=== PATIENT | female | born 1950 | race Caucasian/White ===

== ENCOUNTER 2018-06-10 12:44 | Observation (INO) | payer MEDICARE ==
--- NOTE | 2018-06-10 12:47 | ED ---
Adult Trauma - HPI Summary HPI Summary: 68 y/o female BIBA c/o immediate onset, severe L hip pain s/p fall at home minutes [employer]. Pt slipped on R foot down flight of stairs. Denies LOC. L ankle twisted. Associated sx: L ankle pain and swelling, L cortes pain. Pain worsened with movement and weight bearing. Alleviated at rest. - History of Current Complaint Stated Complaint: FALL Hx Obtained From: Patient Mechanism of Injury: Fall, Twisted Loss of Consciousness: no loss of consciousness Onset of Pain: Immediate Onset Severity: Severe Current Severity: Severe Location: Abdomen/Pelvis - L, Extremities - L cortes and ankle Aggravating Factor(s): Movement, Weight Bearing Alleviating Factor(s): Rest Associated Signs & Symptoms: Positive: Other: - swelling L ankle - Allergy/Home Medications Allergies/Adverse Reactions: Allergies Allergy/AdvReac Type Severity Reaction Status Date / Time Adhesive Tape Allergy BLISTERS Verified 06/10/18 13:12 WHEN LEFT ON TOO LONG cephalexin [From Keflex] Allergy Hives Verified 06/10/18 13:12 duloxetine [From Cymbalta] Allergy Unknown Verified 06/10/18 13:12 Reaction Details metronidazole [From Flagyl] Allergy Hives Verified 06/10/18 13:12 nitrofurantoin Allergy Hives Verified 06/10/18 13:12 [From Macrobid] oral narcotics Allergy See Comment Uncoded 06/10/18 13:12 PMH/Surg Hx/FS Hx/Imm Hx Previously Healthy: No Endocrine/Hematology History: Reports: Hx Thyroid Disease - hypo, s/p thyroidectomy Cardiovascular History: Reports: Hx Angina, Hx Hypertension, Other Cardiovascular Problems/Disorders - Lymphedema of both legs, L>R Denies: Hx Coronary Artery Disease, Hx Hypercholesterolemia, Hx Myocardial Infarction, Hx Valvular Heart Disease Respiratory History: Reports: Hx Pulmonary Embolism - X 1- IN 2008- TREATED FOR AND HAD NO RECURRENCE Denies: Hx Asthma, Hx Chronic Obstructive Pulmonary Disease (COPD) GI History: Reports: Hx Diverticulosis, Hx Gastroesophageal Reflux Disease, Hx Hiatal Hernia - SLIGHT, Hx Irritable Bowel - DIVERTICULOSIS, Other GI Disorders - HEMORRHAGIC HEMORRHOIDS History: Reports: Other Problems/Disorders - recurrent UTIs Musculoskeletal History: Reports: Hx Arthritis - SPINE, Hx Back Problems, Other Musculoskeletal History - spina bifida, 5 surgeries, rods & screws Sensory History: Reports: Hx Contacts or Glasses Denies: Hx Hearing Aid Opthamlomology History: Reports: Hx Contacts or Glasses Neurological History: Reports: Hx Headaches, Hx Migraine, Other Neuro Impairments/Disorders - concussion 2012. PA[facility] PT. Denies: Hx Seizures, Hx Spinal Cord Injury, Hx Transient Ischemic Attacks ( TIA) Psychiatric History: Reports: Hx Anxiety - Cancer History Cancer Type, Location and Year: thyroid. phyllodes tumor (right breast) - Surgical History Surgery Procedure, Year, and Place: THYROID PARTIALLY REMOVED. REMAINDER OF THYROID REMOVED. 5 SPINAL SURGERIES. 1981- HEMORROIDECTOMY. 5 YRS AGO- HEMORROIDECTOMY. COLONOSCOPIES. BILATERAL FALLOPIAN TUBES AND 1 OVARY REMOVED. ENDOMETRIAL ABLATION- . TONSILLECTOMY. LAPAROSCOPY TO LOOK AT SPINE. D&C'S Hx Anesthesia Reactions: Yes - STATES BLOOD PRESSURE DROPS AFTER SURGERY - Family History Known Family History: Positive: Unknown - Social History Alcohol Use: Rare Hx Substance Use: No Substance Use Type: Reports: None Hx Tobacco Use: No Smoking Status (MU): Never Smoked Tobacco Review of Systems Constitutional: Negative Eyes: Negative ENT: Negative Cardiovascular: Negative Respiratory: Negative Gastrointestinal: Negative Genitourinary: Negative Positive: Arthralgia - L hip, cortes and ankle pain, Edema - L ankle Skin: Negative Neurological: Negative Psychological: Normal All Other Systems Reviewed And Are Negative: No Physical Exam - Summary Physical Exam Summary: Appearance: Alert, conversive, nontoxic appearing Skin: Warm, dry, no mottling, no rashes, no contusions HEENT: EOMI, PERRL, moist mucous membranes Neck: No masses on the neck, supple Respiratory: Clear to auscultation, breath sounds present, no rales, no rhonchi , no wheezes Cardiovascular: RRR, pulses are symmetrical in both lower and upper extremities Abdomen: Soft, non-tender Bowel Sounds: Present Musculoskeletal: No CVA tenderness, no obvious deformity, moving all extremities in a grossly normal manner Neurological: A&Ox3, CN II-XII Intact, moving all extremities symmetrically Psychiatric: Normal affect and mood Triage Information Reviewed: Yes Vital Signs Reviewed: Yes Diagnostics - Laboratory Result Diagrams: 06/10/18 14:10 06/10/18 14:10 Lab Statement: Any lab studies that have been ordered have been reviewed, and results considered in the medical decision making process. - Radiology Hip/pelvis XR Xray Interpretation: No Acute Changes - No acute bony findings of left hip Radiology Interpretation Completed By: Radiologist Knee XR Xray Interpretation: No Acute Changes - No acute bony findings Radiology Interpretation Completed By: Radiologist Femur Xr Xray Interpretation: No Acute Changes - No acute bony findings Radiology Interpretation Completed By: Radiologist Femur XR Xray Interpretation: No Acute Changes - No acute bony findings Radiology Interpretation Completed By: Radiologist Ankle XR Xray Interpretation: Positive (See Comments) - Moderate diffuse soft tissue swelling. Radiology Interpretation Completed By: Radiologist Lumbar Spine XR Radiology Interpretation Completed By: Radiologist - DEGENERATIVE DISC DISEASE AND OSTEOARTHRITIS. STATUS POST SPINAL FUSION. Lower Extremity XR Xray Interpretation: No Acute Changes - No acute bony change Radiology Interpretation Completed By: Radiologist Foot XR Radiology Interpretation Completed By: Radiologist - Soft Tissue swelling, no acute bony findings Re-Evaluation - Re-Evaluation 1 Re-Evaluation Time: 17:00 Change: Unchanged Comment: Discussed XR results. Pt still in severe pain. Pt wants to be admitted. Pt c/o TRIVEDI and nausea from narcotics. Adult Trauma Course/Dx - Course Assessment/Plan: L side hip, ankle and cortes pain s/p fall at home. BIBA. No LOC. Given morphine for pain, Zofran in ED course. Ankle XR and Foot XR shows moderate diffuse soft tissue swelling. Lumbar Spine XR shows DEGENERATIVE DISC DISEASE AND OSTEOARTHRITIS. STATUS POST SPINAL FUSION. All XR's negative for acute bony findings. On-reeval pt is still in severe pain. Pt wants to be admitted. Spoke with Dr. Estrada, who accepted the pt for admission. - Diagnoses Provider Diagnoses: Intractable back pain, Intractable pain - Physician Notifications Discussed Care Of Patient With: Emperatriz Estrada Time Discussed With Above Provider: 17:05 Instructed by Provider To: Admit As Inpatient Discharge - Sign-Out/Discharge Documenting (check all that apply): Patient Departure - Discharge Plan Condition: Stable Disposition: ADMITTED TO [facility] - Billing Disposition and Condition Condition: STABLE Disposition: Admitted to [facility] - Attestation Statements Document Initiated by Scribe: Yes Documenting Scribe: Yrn Alvarez Provider For Whom Scribe is Documenting (Include Credential): Rosanne Mansfield MD Scribe Attestation: Yrn Fonseca, scribed for Rosanne Mansfield MD on 06/10/18 at 1813. Scribe Documentation Reviewed: Yes Provider Attestation: The documentation as recorded by the scribe, Yrn Alvarez accurately reflects the service I personally performed and the decisions made by me, Rosanne Mansfield MD
[2018-06-10] MEDS ORDERED: Morphine INJ** 4 MG/ML 1 ML CARPUJECT IV ONE (12:51)
[2018-06-10] MEDS ORDERED: Morphine INJ* 2 MG/ML 1 ML SYRINGE (TWO MG - NEW SYRINGE VERSION) ONE (13:25)
[2018-06-10] MEDS ORDERED: Ondansetron ODT TAB* 4 MG ONE (13:31)
[2018-06-10] MEDS ORDERED: Ondansetron ODT TAB* 4 MG PO ONE (13:33)
[2018-06-10 14:14] LABS: ABS Basophils 0.1 10^3/ul (0-0.2); ABS Eosinophils 0.1 10^3/ul (0-0.6); ABS Lymphocytes 2.3 10^3/ul (1.0-4.8); ABS Monocytes 0.4 10^3/ul (0-0.8); ABS Neutrophils 6.7 10^3/ul (1.5-7.7); ABS Nucleated RBC 0 10^3/ul; Eosinophil % 1.2 % (0-6); Hematocrit 41 % (35-47); Hemoglobin 14.5 g/dl (12.0-16.0); Mean Corpuscular HGB Conc 35 g/dl (31-36); Mean Corpuscular Hemoglobin 32 pg (27-31); Mean Corpuscular Volume 90 fL (80-97); Mean Platelet Volume 8.3 um3 (7.4-10.4); Nucleated Red Blood Cells % 0; Platelet Count 243 10^3/ul (150-450); Red Blood Count 4.58 10^6/ul (4.00-5.40); Red Cell Distribution Width 13 % (10.5-15); White Blood Count 9.6 10^3/ul (3.5-10.8)
[2018-06-10 14:27] LABS: INR 0.85 (0.77-1.02)
[2018-06-10 14:33] LABS: EGFR Non-African American 72.6 (>60)
[2018-06-10] MEDS ORDERED: hydrOXYzine HCL TAB* 25 MG PO ONE (14:40)
[2018-06-10] MEDS ORDERED: fentaNYL* 50 MCG/ML 2 ML VIAL (100 MCG VIAL) IV SLOW PU ONE (14:41)
--- NOTE | 2018-06-10 15:45 | RAD ---
INDICATION: Left hip pain COMPARISON: None TECHNIQUE: An AP view of the pelvis and AP views of the hip in neutral and abducted position were obtained FINDINGS: Bones: There are no acute bony findings. Joint spaces: The hips articulate normally. The joint spaces are preserved. SI joints/symphysis: The SI joints and symphysis are intact. Other: There is prior lumbar decompression and fusion IMPRESSION: NO ACUTE FINDINGS ABOUT THE LEFT HIP
--- NOTE | 2018-06-10 15:47 | RAD ---
INDICATION: Left knee pain COMPARISON: None TECHNIQUE: AP and crosstable lateral views were obtained. FINDINGS: There is no acute bony change. There is moderate patellofemoral osteoarthritis. There may be a tiny suprapatellar effusion. IMPRESSION: NO ACUTE BONY FINDINGS.
--- NOTE | 2018-06-10 15:48 | RAD ---
INDICATION: Left leg pain COMPARISON: None TECHNIQUE: AP and lateral views were obtained. FINDINGS: There is no acute fracture. There is minor osteoarthritis about the knee. There are scattered soft tissue calcifications. IMPRESSION: NO ACUTE BONY FINDINGS.
--- NOTE | 2018-06-10 15:54 | RAD ---
HISTORY: pain COMPARISONS: January 28, 2013 VIEWS: 3 , Frontal, lateral, and coned-down lateral sacral views of the lumbar spine FINDINGS: ALIGNMENT: There is grade 1 anterolisthesis of L5 on S1, stable. VERTEBRAL BODIES: The patient is status post laminectomy and spinal fusion with pedicle screws at L3 and S1 with stabilizing rods. JOINTS: There is fusion of the facet joints from L3 through S1 INTERVERTEBRAL DISCS: There is diffuse loss of intervertebral disc height. SOFT TISSUE: Unremarkable. OTHER: The pelvis is unremarkable. The lung bases are clear. IMPRESSION: DEGENERATIVE DISC DISEASE AND OSTEOARTHRITIS. STATUS POST SPINAL FUSION.
--- NOTE | 2018-06-10 15:55 | RAD ---
INDICATION: Left ankle pain COMPARISON: None TECHNIQUE: AP, lateral, and oblique views were obtained. FINDINGS: There is no acute fracture. The ankle mortise is intact. There is moderate diffuse soft tissue swelling. IMPRESSION: MODERATE DIFFUSE SOFT TISSUE SWELLING
--- NOTE | 2018-06-10 15:57 | RAD ---
INDICATION: Left foot pain COMPARISON: None TECHNIQUE: AP, crosstable lateral, and oblique views were obtained. FINDINGS: There is no acute bony change. There is first MTP joint osteoarthritis. There is mild diffuse soft tissue swelling. IMPRESSION: SOFT TISSUE SWELLING. NO ACUTE FRACTURE.
--- NOTE | 2018-06-10 15:59 | RAD ---
INDICATION: Left lower leg pain COMPARISON: None TECHNIQUE: AP and lateral views were obtained. FINDINGS: There is no acute bony change. There is a loss in the fat muscle interface consistent with mild dependent edema. IMPRESSION: NO ACUTE BONY CHANGE.
[2018-06-10] MEDS ORDERED: Ondansetron INJ* 2 MG/ML VIAL IV PRN (18:01)
[2018-06-10] MEDS: fentaNYL* 50 MCG/ML 2 ML VIAL (100 MCG VIAL) IV SLOW PU PRN ×2 (18:53→23:36)
[2018-06-10] MEDS: hydrOXYzine HCL TAB* 25 MG PO PRN ×2 (18:54→23:36)
--- NOTE | 2018-06-10 20:38 | HP ---
CC: Dr. Forrester * [facility] MEDICINE HISTORY AND PHYSICAL: DATE OF ADMISSION: 06/10/18 PRIMARY CARE PHYSICIAN: Dr. Forrester ATTENDING PHYSICIAN: Devika Hall MD * (dictation provided by Betty Benavides NP ). CHIEF COMPLAINT: Back and leg pain. HISTORY OF PRESENT ILLNESS: Ms. Moses is a 68-year-old female with a past medical history of spina bifida with multiple back surgeries, diabetes, and hypothyroidism, who presents to the hospital today with concern for a fall at home. Ms. Moses states she was in her normal state of health when she was coming down the stairs and slipped with her right leg landing on her left side and sliding down the stairs. She had immediate pain throughout her left side, though most pronouncedly in her leg, ankle, foot, hip, and back. The patient was transported to the emergency room here for evaluation. She states that prior to this fall, she was feeling her normal state of health and that this was a purely mechanical fall and she did not lose consciousness. In the emergency room, Ms. Moses had multiple imaging studies including x-rays of the hip, pelvis, ankle, knee, femur, foot, and lumbar spine showing no evidence of a fracture. The patient had pain medication in the ED, but despite this had continued uncontrolled pain and inability to ambulate, and therefore, plans are for observation in the hospital. PAST MEDICAL HISTORY: 1. Spina bifida with back surgeries x5. 2. Hypothyroidism secondary to thyroid cancer with thyroidectomy. 3. Hypertension. 4. Type 2 diabetes, the patient reports prediabetes. 5. 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 MEDICATIONS: Outpatient are: 1. Metformin 500 mg p.o. daily. 2. Triamterene/hydrochlorothiazide 37.5/25 mg 1 cap p.o. b.i.d. 3. Levothyroxine 150 mcg p.o. daily. ALLERGIES: To ADHESIVE TAPE, CEPHALEXIN, DULOXETINE, METRONIDAZOLE, NITROFURANTOIN, and ORAL NARCOTICS. FAMILY HISTORY: The patient's dad in his 80s related to coronary artery disease. Mother related to supranuclear palsy in her 90s. She had a sister who had Parkinson's, another sister had colon cancer. SOCIAL HISTORY: The patient denies alcohol, tobacco, or drug use. She lives with her , Pascual, who is her healthcare proxy. REVIEW OF SYSTEMS: A 14-point review of systems was completed with Ms. Moses and all those not mentioned above were negative. PHYSICAL EXAMINATION GENERAL: Ms. Moses is lying in the bed. She appears uncomfortable, but in no acute distress. VITAL SIGNS: Temperature 98, pulse rate 58, respiratory rate 20, O2 saturation 99% on room air, and blood pressure 158/84. LUNGS: Clear to auscultation bilaterally with no accessory muscle use and good aeration. HEART: S1, S2. No murmur, rub, or gallop and regular. ABDOMEN: Soft and nontender with bowel sounds positive x4. EXTREMITIES: No cyanosis. There is edema to the left ankle and foot and a slight abrasion to the left cortes with very minimal erythema. NEUROLOGIC: She is alert. She is oriented x3. She moves all extremities equally, though the movement of the left lower extremity is limited due to pain. There is no facial asymmetry or focal weakness. Extraocular movements are intact. SKIN: Intact. DIAGNOSTIC STUDIES/LAB DATA: Sodium 139, potassium 3.7, chloride 105, serum bicarbonate 25, BUN 18, creatinine 0.79, glucose 130. WBC 9.6, hemoglobin 14.5 , hematocrit 41, and platelet count 243,000. INR is 0.85. The patient had a hip and pelvis x-ray that showed the following: "No acute findings about the left hip." Ankle x-ray shows "moderate diffuse soft tissue swelling." Knee x-ray: No acute bony findings. Femur x-ray: No acute bony findings. Foot x-ray: Soft tissue swelling. No acute fracture. Lower extremity x-ray: No acute bony change. Lumbar spine x-ray: Degenerative disk disease and osteoarthritis, status post spinal fusion. ASSESSMENT AND PLAN: Ms. Moses is a 68-year-old female with past medical history of thyroid cancer, status post thyroidectomy, diabetes, and 5 back surgeries secondary to spina bifida who presents to the hospital today with concern for a fall with uncontrolled pain and inability to ambulate. Our plans are for observation in the hospital for the followin. Uncontrolled pain with inability to ambulate: The patient has a history of multiple back surgeries and what she reports as an inability to tolerate oral narcotics secondary to issue with digestive enzymes that cause rapid metabolism of these medications leading to respiratory distress and therefore, requires observation in the hospital for pain control. She tolerates fentanyl well. We will have fentanyl available with hydroxyzine p.r.n. I have ordered PT to begin working with her tomorrow. 2. Hypothyroidism: Continue levothyroxine. 3. Hypertension: Continue triamterene/hydrochlorothiazide. 4. Type 2 diabetes. The patient states she is "prediabetic." Plan to hold metformin, but do not plan to check blood glucoses while inpatient. 5. Code status: Full code. 6. Disposition: To medical floor. TIME SPENT: Approximately 60 minutes were spent on the admission of this patient, more than half the time with the patient at the bedside reviewing the events leading up to this hospitalization, performing physical examination, reviewing my plan of care. BETTY BENAVIDES NP [id number]/CPS #: [id number] SHANNAN
[2018-06-10] MEDS: Triamterene/HCTZ 37.5-25 MG* CAP PO SCH (22:31)
[2018-06-10] MEDS: Heparin VIAL(*) 5000 UNITS/ML VIAL (FIVE THOUSAND) SUBCUT SCH (22:33)
[2018-06-11] MEDS: fentaNYL* 50 MCG/ML 2 ML VIAL (100 MCG VIAL) IV SLOW PU PRN ×5 (03:57→23:04)
[2018-06-11] MEDS: hydrOXYzine HCL TAB* 25 MG PO PRN ×5 (03:58→23:03)
[2018-06-11] MEDS: Heparin VIAL(*) 5000 UNITS/ML VIAL (FIVE THOUSAND) SUBCUT SCH ×3 (06:59→21:26)
[2018-06-11] MEDS: Levothyroxine TAB* 150 MCG TAB PO SCH (06:59)
--- NOTE | 2018-06-11 08:40 | PN ---
Subjective Date of Service: 06/11/18 Interval History: Ms. Moses reports continued pain in her left SI joint and left big toe primarily though it hurts throughout her left side. She denies other complaint including chest pain, SOB, nausea, or abdominal pain. Objective Active Medications: Docusate Sodium (Colace Cap*) 100 mg PO DAILY PRN Fentanyl Citrate (Fentanyl*) 25 mcg IV SLOW PU Q4H PRN Heparin Sodium (Porcine) (Heparin Vial(*)) 5,000 units SUBCUT Q8HR ISIDRO Hydroxyzine HCl (Atarax Tab*) 25 mg PO Q4H PRN Levothyroxine Sodium (Synthroid Tab*) 150 mcg PO 0600 ISIDRO Ondansetron HCl (Zofran Inj*) 4 mg IV Q6H PRN Polyethylene Glycol/Electrolytes (Miralax*) 17 gm PO DAILY PRN Senna (Senokot Tab*) 1 tab PO DAILY ISIDRO Triamterene/HCTZ (Dyazide Cap*) 1 cap PO BID ISIDRO Vital Signs: Temp Pulse Resp BP Pulse Ox 97.6 F 50 16 160/78 97 06/11/18 03:47 06/11/18 03:47 06/11/18 06:58 06/11/18 03:47 06/11/18 03:47 Oxygen Devices in Use Now: None Appearance: Female lying in bed in NAD Eyes: No Scleral Icterus Ears/Nose/Mouth/Throat: Mucous Membranes Moist Neck: Trachea Midline Respiratory: Symmetrical Chest Expansion and Respiratory Effort, Clear to Auscultation Cardiovascular: NL Sounds; No Murmurs; No JVD, No Edema Abdominal: NL Sounds; No Tenderness; No Distention Lymphatic: No Cervical Adenopathy Extremities: No Edema Skin: No Rash or Ulcers Neurological: Alert and Oriented x 3, NL Muscle Strength and Tone Nutrition: Taking PO's Result Diagrams: 06/10/18 14:10 06/10/18 14:10 Assess/Plan/Problems-Billing Assessment: Ms. Moses is a 68 yo F with a PMH of spina bifida and multiple back surgery with spinal fusion from L2-S1 who was admitted on 06/10/18 with back and left leg pain after a mechanical fall down stairs at home. - Patient Problems (1) Back pain Comment: - No real improvement. Complains of SI joint pain primarily, which she has had treated outpatient with injections. - No fracture noted on imaging. - Plan for pain control (patient states that she is unable to tolerate oral opiates due to digestive enzyme problem which causes over metabolization). Spoke with Dr. Silverio who she sees outpatient for pain management. Recommends use of toradol, flexeril and lyrica. May also try tramadol or nucynta. Patient to SI joint injection on Thursday AM. (2) History of hypertension Comment: - SBP 140-160s. - Continue triamterene/hctz. (3) Hx of thyroid cancer Comment: - S/P thyroidectomy, continue levothyroxine. (4) DVT prophylaxis Comment: - Heparin SQ. (5) Full code status Comment: Status and Disposition: OBV. Anticipate discharge to home when medically stable.
[2018-06-11] MEDS: Docusate CAP* 100 MG PO PRN (08:49)
[2018-06-11] MEDS: Senna TAB PO SCH (08:50)
[2018-06-11] MEDS: Polyethylene Glycol 3350* 17 GM PACKET PO PRN (08:50)
[2018-06-11] MEDS: Triamterene/HCTZ 37.5-25 MG* CAP PO SCH ×2 (08:50→20:55)
[2018-06-11] MEDS ORDERED: Cyclobenzaprine TAB* 10 MG PO PRN (16:24)
[2018-06-11] MEDS ORDERED: Pregabalin CAP(*) 25 MG PO PRN (16:25)
[2018-06-11] MEDS: Ketorolac TAB * 10 MG TAB PO PRN (17:00)
[2018-06-12] MEDS: fentaNYL* 50 MCG/ML 2 ML VIAL (100 MCG VIAL) IV SLOW PU PRN ×4 (03:02→23:59)
[2018-06-12] MEDS: hydrOXYzine HCL TAB* 25 MG PO PRN ×3 (03:02→19:30)
[2018-06-12] MEDS: Ketorolac TAB * 10 MG TAB PO PRN ×2 (03:39→10:41)
[2018-06-12] MEDS: Heparin VIAL(*) 5000 UNITS/ML VIAL (FIVE THOUSAND) SUBCUT SCH ×3 (05:28→20:55)
[2018-06-12] MEDS: Levothyroxine TAB* 150 MCG TAB PO SCH (05:28)
[2018-06-12] MEDS: Senna TAB PO SCH (08:11)
[2018-06-12] MEDS: Triamterene/HCTZ 37.5-25 MG* CAP PO SCH ×2 (08:11→20:53)
[2018-06-12] MEDS: Docusate CAP* 100 MG PO PRN (08:11)
[2018-06-12] MEDS: Polyethylene Glycol 3350* 17 GM PACKET PO PRN (08:11)
--- NOTE | 2018-06-12 08:44 | PN ---
Subjective Date of Service: 06/12/18 Interval History: Ms. Moses continues to have severe pain and be unable to bear weight on her left foot due to pain in her foot, ankle and low back. Today, she has tried the addition of nucynta but became very flushed in the face. She describes this facial flushing as being indicative of an inability to tolerate a medication and notes that in the past (on multiple) occasions when she has tried taking a second dose of a medication in this situation that she has essentially developed an allergic reaction. Therefore, she cannot tolerate nucynta. She has tried multiple times to stand at the side of the bed and despite IV narcotics is not able to tolerate the pain. Objective Active Medications: Cyclobenzaprine HCl (Flexeril Tab*) 5 mg PO BEDTIME PRN Docusate Sodium (Colace Cap*) 100 mg PO DAILY PRN Fentanyl Citrate (Fentanyl*) 25 mcg IV SLOW PU Q4H PRN Heparin Sodium (Porcine) (Heparin Vial(*)) 5,000 units SUBCUT Q8HR ISIDRO Hydroxyzine HCl (Atarax Tab*) 25 mg PO Q4H PRN Ketorolac Tromethamine (Toradol Tab *) 10 mg PO Q6H PRN Levothyroxine Sodium (Synthroid Tab*) 150 mcg PO 0600 ISIDRO Ondansetron HCl (Zofran Inj*) 4 mg IV Q6H PRN Polyethylene Glycol/Electrolytes (Miralax*) 17 gm PO DAILY PRN Pregabalin (Lyrica Cap(*)) 25 mg PO BEDTIME PRN Senna (Senokot Tab*) 1 tab PO DAILY ISIDRO Triamterene/HCTZ (Dyazide Cap*) 1 cap PO BID [facility] Vital Signs: Temp Pulse Resp BP Pulse Ox 98.0 F 66 16 123/63 95 06/12/18 07:32 06/12/18 08:01 06/12/18 08:21 06/12/18 07:32 06/12/18 07:32 Oxygen Devices in Use Now: None Appearance: Female lying in bed, crying at times, but in NAD Eyes: No Scleral Icterus Ears/Nose/Mouth/Throat: Mucous Membranes Moist Neck: Trachea Midline Respiratory: Symmetrical Chest Expansion and Respiratory Effort, Clear to Auscultation Cardiovascular: NL Sounds; No Murmurs; No JVD, No Edema Abdominal: NL Sounds; No Tenderness; No Distention Lymphatic: No Cervical Adenopathy Extremities: - - Left ankle and foot swollen, no erythema Skin: No Rash or Ulcers Neurological: Alert and Oriented x 3, NL Muscle Strength and Tone Nutrition: Taking PO's Result Diagrams: 06/10/18 14:10 06/10/18 14:10 Assess/Plan/Problems-Billing Assessment: Ms. Moses is a 68 yo F with a PMH of spina bifida and multiple back surgery with spinal fusion from L2-S1 who was admitted on 06/10/18 with back and left leg pain after a mechanical fall down stairs at home. - Patient Problems (1) Back pain Comment: - No improvement in back, ankle and foot pain today. - No fracture noted on imaging. - Plan for pain control (patient states that she is unable to tolerate oral opiates due to digestive enzyme problem which causes over metabolization). Spoke with Dr. Silverio who she sees outpatient for pain management. Recommends use of toradol, flexeril and lyrica. Unable to tolerate nucynta. Will try lyrica now, patient did not take this yesterday. Patient to SI joint injection on Thursday AM. - Continue PT. (2) History of hypertension Comment: - SBP 140-160s. - Continue triamterene/hctz. (3) Hx of thyroid cancer Comment: - S/P thyroidectomy, continue levothyroxine. (4) DVT prophylaxis Comment: - Heparin SQ. (5) Full code status Comment: Status and Disposition: Convert to inpatient. Despite extensive conversations and multiple efforts at pain control, patient remains unable to stand or ambulate due to severe pain. She is unable to tolerate oral narcotics and therefore continues to require IV narcotics for severe pain. Will continue with efforts and pain control and PT for mobility.
[2018-06-12] MEDS: Magnesium Hydroxide LIQ* 30 ML UDC PO PRN ×2 (10:41→16:25)
[2018-06-12] MEDS ORDERED: TAPENTADOL 50 MG PO PRN (11:31)
[2018-06-12] MEDS ORDERED: fentaNYL* 50 MCG/ML 2 ML VIAL (100 MCG VIAL) IV SLOW PU ONE (14:45)
[2018-06-12] MEDS ORDERED: Pregabalin CAP(*) 25 MG PO ONE (15:54)
[2018-06-12] MEDS ORDERED: Nitroglycerin TAB 0.4 MG* 0.4 MG TAB SL PRN (19:59)
[2018-06-12] MEDS: Pregabalin CAP(*) 50 MG PO SCH (20:53)
[2018-06-12] MEDS ORDERED: Cyclobenzaprine TAB* 10 MG PO SCH (21:00)
--- NOTE | 2018-06-12 21:08 | PN ---
Hospitalist Progress Note Date of Service: 06/12/18 Paged due to chest pain that is left sided and constant and had been present all day but had gotten worse in the evening. Patient had nausea which resolved with zofran and felt that she was more sweaty than normal. Patient had an EKG which was similar to EKG from 2015 without obvious signs of ischemia. Patient was given nitroglycerin and her chest pain significantly diminished. Patient had a negative stress test in October of this year for ongoing chest pain with a negative cardiac catheterization in 2014. Patient was prescribed Amlodipine at that time with a diagnosis of vasomotor dysfunction. Patient states that the amlodipine was effective in controlling her pain and she stopped taking it due to lack of symptoms. Troponin negative. Will reintroduce Amlodipine, Monitor patient on telemetry and repeat troponin in AM.
[2018-06-13] MEDS: Ketorolac TAB * 10 MG TAB PO PRN ×3 (00:40→12:58)
[2018-06-13] MEDS: hydrOXYzine HCL TAB* 25 MG PO PRN ×3 (06:19→11:36)
[2018-06-13] MEDS: Levothyroxine TAB* 150 MCG TAB PO SCH (06:20)
[2018-06-13] MEDS: fentaNYL* 50 MCG/ML 2 ML VIAL (100 MCG VIAL) IV SLOW PU PRN ×2 (06:21→11:36)
[2018-06-13] MEDS: Heparin VIAL(*) 5000 UNITS/ML VIAL (FIVE THOUSAND) SUBCUT SCH ×2 (06:21→12:58)
[2018-06-13] MEDS: Senna TAB PO SCH (07:44)
[2018-06-13] MEDS: Pregabalin CAP(*) 50 MG PO SCH ×2 (07:44→12:58)
[2018-06-13] MEDS: Docusate CAP* 100 MG PO PRN (07:44)
[2018-06-13] MEDS: Triamterene/HCTZ 37.5-25 MG* CAP PO SCH (07:44)
--- NOTE | 2018-06-13 10:24 | PN ---
Subjective Date of Service: 06/13/18 Interval History: Patient denies further chest pain. She states that the pain in her leg and back is much more manageable today. She denies other complaint. She has been up and is now able to ambulate a short distance with crutches. Objective Active Medications: Amlodipine Besylate (Norvasc Tab*) 2.5 mg PO QPM ISIDRO Cyclobenzaprine HCl (Flexeril Tab*) 5 mg PO BEDTIME ISIDRO Docusate Sodium (Colace Cap*) 100 mg PO DAILY PRN Fentanyl Citrate (Fentanyl*) 25 mcg IV SLOW PU Q4H PRN Heparin Sodium (Porcine) (Heparin Vial(*)) 5,000 units SUBCUT Q8HR ISIDRO Hydroxyzine HCl (Atarax Tab*) 25 mg PO Q4H PRN Ketorolac Tromethamine (Toradol Tab *) 10 mg PO Q6H PRN Levothyroxine Sodium (Synthroid Tab*) 150 mcg PO 0600 ISIDRO Magnesium Hydroxide (Milk Of Magnesia Liq*) 30 ml PO Q2H PRN Ondansetron HCl (Zofran Inj*) 4 mg IV Q6H PRN Polyethylene Glycol/Electrolytes (Miralax*) 17 gm PO DAILY PRN Pregabalin (Lyrica Cap(*)) 50 mg PO TID ISIDRO Senna (Senokot Tab*) 1 tab PO DAILY ISIDRO Triamterene/HCTZ (Dyazide Cap*) 1 cap PO BID [facility] Vital Signs: Temp Pulse Resp BP Pulse Ox 98.0 F 68 18 115/60 94 06/13/18 07:29 06/13/18 07:33 06/13/18 07:55 06/13/18 07:29 06/13/18 07:29 Oxygen Devices in Use Now: None Appearance: Female lying in bed in NAD Eyes: No Scleral Icterus Ears/Nose/Mouth/Throat: Mucous Membranes Moist Neck: Trachea Midline Respiratory: Symmetrical Chest Expansion and Respiratory Effort, Clear to Auscultation Cardiovascular: NL Sounds; No Murmurs; No JVD Abdominal: NL Sounds; No Tenderness; No Distention Lymphatic: No Cervical Adenopathy Extremities: - - Swelling noted to left foot and ankle, unchanged Skin: No Rash or Ulcers Neurological: Alert and Oriented x 3, NL Muscle Strength and Tone Nutrition: Taking PO's Result Diagrams: 06/10/18 14:10 06/10/18 14:10 Assess/Plan/Problems-Billing Assessment: Ms. Moses is a 68 yo F with a PMH of spina bifida and multiple back surgery with spinal fusion from L2-S1 who was admitted on 06/10/18 with back and left leg pain after a mechanical fall down stairs at home. - Patient Problems (1) Back pain Comment: - Significant improvement noted overnight, patient now able to be minimally mobile. - No fracture noted on imaging. - Plan for discharge with fentanyl patch, toradol then ibuprofen, lyrica, flexeril,and atarax. - Patient to follow up tomorrow with Dr. Silverio. (2) History of hypertension Comment: - SBP 140-160s. - Continue triamterene/hctz. (3) Hx of thyroid cancer Comment: - S/P thyroidectomy, continue levothyroxine. (4) DVT prophylaxis Comment: - Heparin SQ. (5) Full code status Comment: Status and Disposition: Discharge. Patient has made arrangements to stay at her sister's house.
[2018-06-13 11:30] VITALS: BP 142/75
[2018-06-13] MEDS ORDERED: amLODIPine TAB* 5 MG PO SCH (18:00)
--- NOTE | 2018-06-13 23:05 | DS ---
CC: Dr. Forrester; Dr. Silverio.* HOSPITAL MEDICINE DISCHARGE SUMMARY: DATE OF ADMISSION: 06/10/18 DATE OF DISCHARGE: 06/13/18 PRIMARY CARE PHYSICIAN: Dr. Forrester. PAIN PHYSICIAN: Dr. Silverio. ATTENDING PHYSICIAN: Dr. Dawson Lara *(dictation provided by Betty Benavides NP). PRIMARY DIAGNOSES: 1. Low back, ankle and foot pain. 2. Inability to tolerate oral narcotics. SECONDARY DIAGNOSES: 1. Spina bifida with back surgeries x5. 2. Hypothyroidism secondary to thyroid cancer with thyroidectomy. 3. Hypertension. 4. Type 2 diabetes, the patient reports pre diabetes. 5. 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 MEDICATIONS OUTPATIENT: Are: 1. Metformin 500 mg p.o. daily. 2. Triamterene/hydrochlorothiazide 37.5/25 one cap p.o. b.i.d. 3. Levothyroxine 150 mcg p.o. daily. 4. Hydroxyzine 50 mg p.o. q. 6 hours p.r.n. 5. Pregabalin 50 mg p.o. t.i.d. 6. Ketorolac 10 mg p.o. q. 6 hours x3 doses. 7. Cyclobenzaprine 5 mg p.o. at bedtime. 8. Fentanyl patch 25 mcg q. 72 hours x1 patch. 9. Amlodipine 2.5 mg p.o. q. p.m. HOSPITAL COURSE: Ms. Moses is a 68-year-old female with past medical history as outlined above, who presented to the hospital on 06/10/18, with concern for a fall. Please see the dictated H and P from myself for complete details. In brief, the patient states she was walking down her stairs when her right foot slipped and she fell down several stairs on her left side. She had immediate severe pain to her low back, leg, ankle, and foot and was ultimately brought to the emergency room for evaluation. In the emergency room, she had x-rays of the hip, pelvis, ankle, knee, femur, foot, lower extremity and lumbar spine, all of which failed to demonstrate any fracture. She was initially placed on observation in the hospital for pain control. Ms. Moses reported that she had an issue where she was unable to tolerate oral narcotics due to rapid metabolism resulting in very slow respiratory rate and acute respiratory failure. I spoke with Dr. Silverio, her pain physician, who corroborated this report and recommended that the patient be started on Lyrica, Flexeril, Toradol, in addition to fentanyl IV for pain control. This regimen was undertaken and over the next 24 to 48 hours, the patient continued to have severe pain and was unable to ambulate without the use of IV fentanyl. This morning, Ms. Moses is feeling better. She is able to stand and walk short distance with crutches. She has been evaluated by physical therapy and given instructions on how to use crutches and wheelchair as needed. We are planning to switch over to a fentanyl patch and to continue 1 more day of Toradol in addition to the newly started Lyrica and the Flexeril. The patient has a followup appointment with Dr. Silverio tomorrow morning for consideration of SI joint injection. The patient will follow up with Dr. Silverio with any further pain related needs. DISPOSITION: Home. DIET: Regular. ACTIVITY: As tolerated. FOLLOWUP PLANS: 1. Please follow up with Dr. Silverio tomorrow morning for consideration of SI joint injection. 2. Please follow up with Dr. Forrester. BETTY BENAVIDES NP [id number]/CPS #: [id number] SHANNAN
== END 2018-06-13 15:30 | disposition home or self-care (01) | DRG 552 ==
LOC: ED 12:44 → MED 17:47 → OBSVTOIN 06-12 17:24 → INTOOBSV 06-12 17:24
PROVIDERS: ADMIT Hospitalist; ATTEND Student in an Organized Health Care Education/Training Program
DX: M54.5 Low back pain (principal); M25.572 Pain in left ankle and joints of left foot; M79.672 Pain in left foot; W10.8XXA Fall (on) (from) other stairs and steps, initial encounter; Y92.009 Unspecified place in unspecified non-institutional (private) residence as the place of occurrence of the external cause; Q05.9 Spina bifida, unspecified; E03.8 Other specified hypothyroidism; I10 Essential (primary) hypertension; E11.9 Type 2 diabetes mellitus without complications; M51.36 Other intervertebral disc degeneration, lumbar region; D48.61 Neoplasm of uncertain behavior of right breast; M47.9 Spondylosis, unspecified; Z79.84 Long term (current) use of oral hypoglycemic drugs; Z79.899 Other long term (current) drug therapy; Z88.5 Allergy status to narcotic agent; Z88.8 Allergy status to other drugs, medicaments and biological substances; Z91.048 Other nonmedicinal substance allergy status; Z82.49 Family history of ischemic heart disease and other diseases of the circulatory system; Z80.0 Family history of malignant neoplasm of digestive organs
CPT/HCPCS: 36415; 72100; 80053; 84484; 85025; 85610; 85730; 93005; 99284; A9270-GY; G0378; G8978-GP-CJ; G8978-GP-CK; G8979-GP-CH; J1644; J2270; J3010

== ENCOUNTER 2023-12-26 01:16 | Inpatient (IN) ==
[2023-12-26] MEDS: hydrOXYzine IM 50 MG/ML VIAL IM ONE (01:45)
[2023-12-26] MEDS: fentaNYL 100 mcg/2 ml 50 MCG/ML VIAL IV ONE (01:46)
[2023-12-26] MEDS ORDERED: Ondansetron 4 mg VIAL 2 MG/ML 2 ml VIAL IV PRN (01:55)
[2023-12-26] MEDS ORDERED: HYDROmorphone 0.5 MG/0.5 ML SYRINGE IV SLOW PU PRN (02:13)
[2023-12-26] MEDS: Lactated Ringers 1000 ml BAG 1,000 ML IV SCH ×2 (02:16→19:36)
[2023-12-26] MEDS ORDERED: Naloxone 0.4 mg VIAL 0.4 mg/ml 1 ml VIAL IV PUSH PRN (02:40)
[2023-12-26] MEDS: fentaNYL 100 mcg/2 ml 50 MCG/ML VIAL IV SLOW PU PRN ×2 (04:40→11:18)
[2023-12-26] MEDS: hydrOXYzine IM 50 MG/ML VIAL IM PRN (04:46)
[2023-12-26] MEDS: HYDROmorphone 1 MG/1 ML SYRINGE IV SLOW PU PRN (06:16)
[2023-12-26 06:43] LABS: ABS Basophils 0.1 10^3/uL (0.0-0.1); ABS Lymphocytes 1.5 10^3/uL (1.0-4.8); ABS Monocytes 0.2 10^3/uL (0.0-0.9); ABS Neutrophils 7.5 10^3/uL (1.5-7.6); ABS Nucleated RBC 0.01 10^3/ul; Eosinophil % 0.4 %; Hematocrit 40.2 % (35-45); Hemoglobin 13.8 g/dL (11.5-14.3); Lymphocyte % 15.7 %; Mean Corpuscular Hemoglobin 31.1 pg (27-33); Mean Corpuscular Hgb Conc 34.4 g/dL (31-36); Mean Corpuscular Volume 90.5 fL (80-97); Mean Platelet Volume 8.2 fL (7.5-11.2); Nucleated Red Blood Cells % 0.1 %/100WBC (0.0-0.8); Platelet Count 207 10^3/uL (150-450); Red Blood Count 4.45 10^6/uL (3.63-4.92); White Blood Count 9.4 10^3/uL (3.8-11.8)
[2023-12-26 07:38] LABS: Calcium 8.6 mg/dL (8.6-10.3); Creatinine, Serum 0.7 mg/dL (0.51-0.95); Potassium 3.3 mmol/L (3.5-5.0); eGFR CKD-EPI 91.8 (>60)
[2023-12-26 08:03] LABS: Albumin 3.7 g/dL (3.2-5.2); Albumin/Globulin Ratio 1.9 (1-3); HDL Cholesterol 49.3 mg/dL; Total Bilirubin 1.4 mg/dL (0.2-1.0); Total Protein 5.7 g/dL (6.4-8.9)
[2023-12-26] MEDS: Enoxaparin 40 MG/0.4 ML SYR SUBCUT SCH (09:19)
[2023-12-26 14:21] LABS: Magnesium 1.9 mg/dL (1.9-2.7)
[2023-12-26] MEDS: KCL 20 MEQ/100 ML IVPREMIX 20 MEQ/100 ML BAG IV SCH (16:30)
[2023-12-26 16:50] LABS: TSH Ultra Thyroid Stim Horm 0.84 mcIU/mL (0.34-5.60)
[2023-12-26 17:56] LABS: Calcium 8.6 mg/dL (8.6-10.3); Creatinine, Serum 0.77 mg/dL (0.51-0.95); Potassium 3.4 mmol/L (3.5-5.0); eGFR CKD-EPI 81.9 (>60)
[2023-12-26 18:21] LABS: Albumin 3.6 g/dL (3.2-5.2); Albumin/Globulin Ratio 1.8 (1-3); Total Bilirubin 0.9 mg/dL (0.2-1.0); Total Protein 5.6 g/dL (6.4-8.9)
[2023-12-26 20:51] LABS: Ur Squamous Epithelial No Cx Present /HPF (Absent); Urine Appearance No Cx Clear (Clear); Urine Bacteria No Culture Absent /HPF (Absent); Urine Bilirubin No Culture Negative (Negative); Urine Blood No Culture Negative (Negative); Urine Color No Culture Yellow; Urine Glucose No Culture 4+ (>=1000 mg/dL) (Negative); Urine Ketones No Culture Negative (Negative); Urine Leukocytes No Culture Negative Leu/uL (Negative); Urine Nitrite No Culture Negative (Negative); Urine Protein No Culture Trace (Negative); Urine Red Blood Cell No Cult 1+(3-5/hpf) /HPF (0-Trace); Urine Specific Gravity No Cx 1.039 (1.002-1.030); Urine Urobilinogen No Cx Negative (Negative); Urine White Blood Cell No Cult 1+(6-10/hpf) /HPF (0-Trace); Urine pH No Culture 5.5 (5.0-8.0)
[2023-12-27 12:02] LABS: ABS Lymphocytes 1.6 10^3/uL (1.0-4.8); ABS Monocytes 0.6 10^3/uL (0.0-0.9); ABS Neutrophils 8.4 10^3/uL (1.5-7.6); Eosinophil % 0.4 %; Hemoglobin 13.2 g/dL (11.5-14.3); Lymphocyte % 14.8 %; Mean Corpuscular Hemoglobin 31.5 pg (27-33); Mean Corpuscular Hgb Conc 34.7 g/dL (31-36); Mean Corpuscular Volume 90.9 fL (80-97); Mean Platelet Volume 8.1 fL (7.5-11.2); Platelet Count 185 10^3/uL (150-450); Red Blood Count 4.18 10^6/uL (3.63-4.92); Red Cell Distribution Width 13.2 % (12-17); White Blood Count 10.6 10^3/uL (3.8-11.8)
[2023-12-27 12:34] LABS: Albumin 3.2 g/dL (3.2-5.2); Albumin/Globulin Ratio 1.7 (1-3); Calcium 8.2 mg/dL (8.6-10.3); Creatinine, Serum 0.62 mg/dL (0.51-0.95); Direct Bilirubin 0.2 mg/dL (0.03-0.18); Globulin 1.9 g/dL (2-4); Indirect Bilirubin 0.8 mg/dL (0.3-1.0); Potassium 3.3 mmol/L (3.5-5.0); Total Protein 5.1 g/dL (6.4-8.9); eGFR CKD-EPI 94.6 (>60)
[2023-12-27] MEDS: fentaNYL 100 mcg/2 ml 50 MCG/ML VIAL IV SLOW PU PRN (12:37)
[2023-12-27] MEDS: Lactated Ringers 1000 ml BAG 1,000 ML IV SCH ×2 (13:14→16:37)
[2023-12-27] MEDS: D5LR 1000 ml BAG 1,000 ML IV SCH (17:13)
[2023-12-28 06:59] LABS: ABS Eosinophils 0.1 10^3/uL (0.0-0.5); ABS Lymphocytes 1.5 10^3/uL (1.0-4.8); ABS Monocytes 0.6 10^3/uL (0.0-0.9); ABS Neutrophils 8.4 10^3/uL (1.5-7.6); ABS Nucleated RBC 0.01 10^3/ul; Hematocrit 34.7 % (35-45); Hemoglobin 12.1 g/dL (11.5-14.3); Lymphocyte % 14.1 %; Mean Corpuscular Hemoglobin 31.9 pg (27-33); Mean Corpuscular Hgb Conc 34.9 g/dL (31-36); Mean Corpuscular Volume 91.3 fL (80-97); Platelet Count 189 10^3/uL (150-450); Red Blood Count 3.81 10^6/uL (3.63-4.92); Red Cell Distribution Width 12.7 % (12-17); White Blood Count 10.7 10^3/uL (3.8-11.8)
[2023-12-28 08:18] LABS: Albumin/Globulin Ratio 1.7 (1-3); Calcium 8.5 mg/dL (8.6-10.3); Creatinine, Serum 0.61 mg/dL (0.51-0.95); Direct Bilirubin 0.1 mg/dL (0.03-0.18); Globulin 1.8 g/dL (2-4); Indirect Bilirubin 0.8 mg/dL (0.3-1.0); Magnesium 1.7 mg/dL (1.9-2.7); Potassium 3.6 mmol/L (3.5-5.0); Total Bilirubin 0.9 mg/dL (0.2-1.0); Total Protein 4.8 g/dL (6.4-8.9); eGFR CKD-EPI 94.9 (>60)
[2023-12-28] MEDS ORDERED: Bupivacaine 0.25% SDV 30 ML ONE (11:13)
[2023-12-28] MEDS ORDERED: Rocuronium 50 mg VIAL 10 mg/ml 5 ml VIAL (50 mg) ONE (11:53)
[2023-12-28] MEDS ORDERED: Propofol 10 MG/ML 20 ML BTL ONE (11:53)
[2023-12-28] MEDS ORDERED: Lidocaine 2% PF 5 ML VIAL ONE (11:53)
[2023-12-28] MEDS ORDERED: ceFAZolin 2 GM in NS PREMIX 2 GM/100 ML BAG IVPB ONE (12:29)
[2023-12-28] MEDS ORDERED: fentaNYL 100 mcg/2 ml 50 MCG/ML VIAL ONE ×2 (12:41→14:59)
[2023-12-28] MEDS ORDERED: Dexamethasone IV 4 MG/ML VIAL 1 ml VIAL ONE (13:06)
[2023-12-28] MEDS ORDERED: Ondansetron 4 mg VIAL 2 MG/ML 2 ml VIAL ONE (13:06)
[2023-12-28] MEDS ORDERED: Naloxone 0.4 mg VIAL 0.4 mg/ml 1 ml VIAL IV PRN (13:17)
[2023-12-28] MEDS ORDERED: Prochlorperazine 5 mg/ml 2 ml VIAL (10 mg) IV PRN (13:17)
[2023-12-28] MEDS ORDERED: fentaNYL 100 mcg/2 ml 50 MCG/ML VIAL IV PRN (13:17)
[2023-12-28] MEDS ORDERED: Ondansetron 4 mg VIAL 2 MG/ML 2 ml VIAL IV PRN (15:01)
[2023-12-28] MEDS: Potassium Chlor 20 meq TAB.ER PO ONE (16:28)
[2023-12-28] MEDS: fentaNYL 100 mcg/2 ml 50 MCG/ML VIAL IV SLOW PU PRN (18:34)
[2023-12-28] MEDS ORDERED: Dextrose 50% Syringe 50 ml 25 GM/50 ML SYRINGE IV PUSH PRN (22:39)
[2023-12-29 09:37] VITALS: BP 133/59
[2023-12-29 09:46] LABS: ABS Eosinophils 0.1 10^3/uL (0.0-0.5); ABS Lymphocytes 1.7 10^3/uL (1.0-4.8); ABS Monocytes 0.6 10^3/uL (0.0-0.9); ABS Neutrophils 9.5 10^3/uL (1.5-7.6); ABS Nucleated RBC 0.01 10^3/ul; Eosinophil % 0.6 %; Hemoglobin 12.3 g/dL (11.5-14.3); Mean Corpuscular Hemoglobin 31.3 pg (27-33); Mean Corpuscular Hgb Conc 34.3 g/dL (31-36); Mean Corpuscular Volume 91.4 fL (80-97); Platelet Count 214 10^3/uL (150-450); Red Blood Count 3.94 10^6/uL (3.63-4.92); Red Cell Distribution Width 12.8 % (12-17); White Blood Count 11.9 10^3/uL (3.8-11.8)
[2023-12-29 10:17] LABS: Albumin 3.1 g/dL (3.2-5.2); Albumin/Globulin Ratio 1.4 (1-3); Calcium 8.3 mg/dL (8.6-10.3); Creatinine, Serum 0.65 mg/dL (0.51-0.95); Globulin 2.2 g/dL (2-4); Magnesium 1.8 mg/dL (1.9-2.7); Potassium 3.6 mmol/L (3.5-5.0); Total Protein 5.3 g/dL (6.4-8.9); eGFR CKD-EPI 93.5 (>60)
[2023-12-29] MEDS: Empagliflozin 25 MG TAB PO SCH (10:35)
== END 2023-12-29 14:50 | disposition home or self-care (01) | DRG 418 ==
LOC: ED 01:16 → INTOOBSV 01:55 → SUATTDRO 01:55 → EDHOLD 01:55 → MED 11:43
PROVIDERS: ADMIT Internal Medicine; ATTEND Hospitalist